=== PATIENT | male | born 1980 | race Caucasian/White ===

== ENCOUNTER 2016-06-23 05:33 | Day surgery (SDC) | payer OTHER ==
[~2016-06-23] VITALS: Ht 180.3 cm; Wt 80.7 kg
[2016-06-23] VITALS (12 sets, daily range): BP systolic 100–130; BP diastolic 70–86
[~2016-06-23 05:33] MED LIST: FLOMAX0.4 MG ORAL; LATUDA40 MG PO; NORCO 5-325 TA1 EACH ORAL; PROZAC40 MG ORAL; TRAMADOL HCL50 MG ORAL
[2016-06-23] MEDS ORDERED: Dexamethasone 4mg/ml vial ONE (06:41)
[2016-06-23] MEDS ORDERED: EPINEPHrine 1mg/1ml Amp ONE (06:41)
--- NOTE | 2016-06-23 06:41 | Pre-Procedure Note/Attestation ---
Pre-Procedure Note/Attestation Complete Prior to Procedure Planned Procedure: not applicable Procedure Narrative: Procedure for prolapse and hemorrhoids, tag excision Indications for Procedure Pre-Operative Diagnosis: hemorrhoids, tag Attestation I attest that I discussed the nature of the procedure; its benefits; risks and complications; and alternatives (and the risks and benefits of such alternatives ), prior to the procedure, with the patient (or the patient's legal insurance sales representative). I attest that, if there was a reasonable possibility of needing a blood transfusion, the patient (or the patient's legal insurance sales representative) was given the [facility] standardized written summary, pursuant to the [place] Blood Safety Act ([place] Health and Safety Code # 1645, as amended). I attest that I re-evaluated the patient just prior to the surgery and that there has been no change in the patient's H&P, except as documented below: AMBROSE LÓPEZ June 23, 2016 06:41
[2016-06-23] MEDS ORDERED: Ropivacaine 5mg/ml Vial 20ml INJ ONE ×2 (06:42→06:43)
[2016-06-23] MEDS ORDERED: Propofol 10mg/ml 20ml IV ONE (06:43)
[2016-06-23] MEDS ORDERED: LR 1000ml 1,000 ML IVLG SCH (06:47)
--- NOTE | 2016-06-23 06:47 | Anethesia Preoperative Eval ---
Anesthesia Pre-op PMH/ROS General Date of Evaluation: June 23, 2016 Anesthesiologist: Luigi ASA Score: ASA 2 Mallampati Score Class I : Soft palate, uvula, fauces, pillars visible Class II: Soft palate, uvula, fauces visible Class III: Soft palate, base of uvula visible Class IV: Only hard plate visible Mallampati Classification: Class II Surgeon: Daphnie Diagnosis: Hemorrhoids, anal skin tag Surgical Procedure: Hemorrhoidectomy, anal skin tag excision Anesthesia History: none Family History: no anesthesia problems Allergies: Coded Allergies: No Known Allergies (Unverified , 12/11/13) Medications: see eMAR Past Medical History Cardiovascular: Reports: other - HLD, Denies: CAD, HTN, MT, arrhythmia, valve dz Pulmonary: Denies: COPD, BETSEY, asthma, other Gastrointestinal/Genitourinary: Reports: GERD, Denies: CRI, ESRD, other Neurologic/Psychiatric: Reports: depression/anxiety, other - OCD, Denies: CVA, TIA, dementia Endocrine: Denies: DM, hypothyroidism, other, steroids HEENT: Denies: TLINGIT & HAIDA (L), TLINGIT & HAIDA (R), cataract (L), cataract (R), glaucoma, other Hematology/Immune: Denies: DVT, anemia, bleeding disorder, other Musculoskeletal/Integumentary: Denies: DDD, DJD, OA, RA, edema, other PSxH Narrative: Denies Anesthesia Pre-op Phys. Exam Physician Exam Last Vital Signs Date Time Temp Pulse Resp B/P Pulse Ox O2 Delivery O2 Flow Rate FiO2 06/23/16 06:02 97.0 70 18 130/86 Room Air Constitutional: NAD Cardiovascular: RRR Respiratory: CTA Airway Exam Mallampati Score: Class II MO: full ROM: full Teeth: intact Anesthesia Pre-op A/P Labs see chart Studies Pre-op Studies: EKG - sr Risk Assessment & Plan Assessment: ASA II Plan: GA vs MAC Status Change Before Surgery: No Pre-Antibiotics Drug: Ancef 1g Given Within 1 Hr of Incision: HEYDI Arthur M.D. June 23, 2016 06:47
[2016-06-23] MEDS ORDERED: Sterile Water Irrig 1000ml IRRIG ONE (07:00)
[2016-06-23] MEDS ORDERED: Lidocaine 1% MPF 10mg/ml 5ml ONE (07:00)
[2016-06-23] MEDS ORDERED: DiphenhydrAMINE 50mg/ml Inj IVP PRN (07:00)
[2016-06-23] MEDS ORDERED: fentaNYL 100 mcg/2 mL IV PRN (07:00)
[2016-06-23] MEDS ORDERED: NS Irrig 1000ml ONE (07:00)
[2016-06-23] MEDS ORDERED: Hydromorphone 0.5mg/0.5ml inj IVP PRN (07:00)
[2016-06-23] MEDS ORDERED: LR 1000ml ONE (07:00)
[2016-06-23] MEDS ORDERED: Midazolam 2mg/2ml Inj ONE (07:00)
[2016-06-23] MEDS ORDERED: Metoclopramide 10mg/2ml Inj IVP PRN (07:00)
[2016-06-23] MEDS ORDERED: fentaNYL 250mcg/5ml ONE (07:00)
--- NOTE | 2016-06-23 07:50 | Brief Operative Note ---
Immediate Post Operative Note Operative Note Pre-op Diagnosis: hemorrhoids, tag Procedure: Procedure for prolapse and hemorrhoids, tag excision Post-op Diagnosis: same Post-op Diagnosis: same as pre-op Findings: consistent w/pre-op dx studies Surgeon: Halye López MD Anesthesiologist: Salena Meyers MD Anesthesia: moderate sedation Specimen: yes Complications: none Condition: stable Estimated Blood Loss: minimal Drains: none Implant(s) used?: No HALEY LÓPEZ June 23, 2016 07:50
--- NOTE | 2016-06-23 07:52 | Discharge Instructions ---
Discharge Instructions Discharge Instructions Diet: regular Activity: as tolerated, okay to shower Follow Up Orders - remove gauze/tape dressings tonight then may shower/bathe - no ointments on anal region - follow up with Dr. López in 2-3 weeks. Pt to call for appointment at [phone]. For Congestive Heart Failure Reminder Report to your physician any weight gain of 5 pounds or more in one week. AMBROSE LÓPEZ June 23, 2016 07:52
--- NOTE | 2016-06-23 07:54 | Immediate Post-Op Evaluation ---
Immediate Post-Op Evalulation Immediate Post-Op Evalulation Procedure: Hemorrhoidectomy, and skin tag excision Date of Evaluation: June 23, 2016 Time of Evaluation: 07:56 IV Fluids: 600 Blood Products: 0 Estimated Blood Loss: minimal Urinary Output: 0 Blood Pressure Systolic: 127 Blood Pressure Diastolic: 85 Pulse Rate: 106 Respiratory Rate: 17 O2 Sat by Pulse Oximetry: 100 Temperature (Fahrenheit): 97.6 Pain Score (1-10): 0 Nausea: No Vomiting: No Complications 0 Patient Status: awake, reacts, patent, none Hydration Status: adequate Drug: Ancef 1g Given Within 1 Hr of Incision: Yes Time Given: 07:15 HEYDI MATTHEW M.D. June 23, 2016 07:54
--- NOTE | 2016-06-23 09:47 | 48 Hour Post Anesthesia Eval ---
Post Anesthesia Evaluation Procedure: Hemorrhoidectomy, and skin tag excision Date of Evaluation: June 23, 2016 Time of Evaluation: 09:40 Blood Pressure Systolic: 111 0: 74 Pulse Rate: 87 Respiratory Rate: 16 Temperature (Fahrenheit): 97.6 O2 Sat by Pulse Oximetry: 97 Airway: patent Nausea: No Vomiting: No Pain Intensity: 2 Hydration Status: adequate Cardiopulmonary Status: at baseline Mental Status/LOC: patient returned to baseline Post-Anesthesia Complications: 0 Follow-up care needed: ready to discharge HEYDI MATTHEW M.D. June 23, 2016 09:47
--- NOTE | 2016-06-23 12:09 | Operative Note - Dictated ---
DATE OF OPERATION: 06/23/2016 PREOPERATIVE DIAGNOSIS: 1. Large internal hemorrhoids, anal skin tag. POSTOPERATIVE DIAGNOSIS: 1. Large internal hemorrhoids, anal skin tag. PROCEDURE: (PPH), tag excision. SURGEON: Haley Eller M.D. ANESTHESIOLOGIST: Dr. Meyers. ANESTHESIA: Propofol sedation local anesthetic. INDICATION FOR PROCEDURE: The patient is a 36-year-old male who was sent to my office by his physician Dr. Jere Alcantara for colorectal surgical evaluation of a large bleeding internal hemorrhoids. The patient reports that he has been having protrusion of internal hemorrhoids as well as dripping blood. 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 In light of the patient's symptoms were determined to proceed with surgical excision. DESCRIPTION OF THE PROCEDURE: Upon consent of the patient, the patient brought to the operating room, placed in the prone haris-knife position on the operating table. Once adequate sedation was established with propofol drip, the patient's buttocks were prepped and draped in usual surgical fashion. A 40 mL of 5% ropivacaine with epinephrine mixed with 6 mg of dexamethasone was used as a perianal and pudendal block. A Hill-Zepeda retractors placed in the anal canal. There is to be a large anal skin tag in the posterior midline, which was excised and sent as a specimen. There is noted to be a large circumferential internal hemorrhoids. The dilator tape was inserted and removed. The dilator was inserted with a clear obturator and the dilator was removed with a clear obturator was held firmly to the buttocks and placed. Pursestring the anoscope was then inserted and a pressure was created approximately 2 cm proximal to the dentate line using a 2-0 Monocryl suture. Upon completion of the purse-string, the anoscope was removed. The purse-string was tied around the anvil at 33 mm hemorrhoidal PPH staplerr. Attention was applied to the suture were actually closed with stapler. The perianal skin was checked to make sure there was no involvement of the perianal skin. The stapler was then fired opened and withdrawn and there was noted to be a complete hemorrhoidal donut previous specimen. The anal canal was then irrigated hemostasis confirmed. Any bleeding points along the staple line was ligated with a [id number] 2-0 Vicryl suture. Sterile dry dressing was used for dressing. Sponge, instrument counts were correct at the end the case. The patient was awakened from anesthesia and brought to post anesthesia recovery room in stable. ESTIMATED BLOOD LOSS: 5 mL. DRAINS: None. SPECIMENS: Hemorrhoidal donut. COMPLICATIONS: None. Haley Eller M.D. DR: Jayden JOB#: [id number] CC: Haley Eller M.D.; Fax#: [phone] Alcantara M.D.; Dr. Jere Kenny D.O.
== END 2016-06-23 13:20 | disposition home or self-care (01) ==
LOC: SUR 05:33
DX: K64.8 Other hemorrhoids (principal); K64.4 Residual hemorrhoidal skin tags; E78.5 Hyperlipidemia, unspecified; K21.9 Gastro-esophageal reflux disease without esophagitis; F32.9 Major depressive disorder, single episode, unspecified; F41.9 Anxiety disorder, unspecified; F42.9 Obsessive-compulsive disorder, unspecified
CPT/HCPCS: 46947; J0171; J1100; J1170; J2250; J2405; J2704; J2795; J3010; J7120; 94003; 94150